=== PATIENT | female | born 1960 | race Caucasian/White ===

== ENCOUNTER 2017-02-04 11:27 | Emergency (ER) | payer MEDICARE, OTHER ==
[~2017-02-04] VITALS: Ht 157.5 cm; Wt 64.0 kg
[~2017-02-04 11:27] MED LIST: HALO10 PO; LITH600 PO; QUET200T PO; SERT100T PO
[2017-02-04] MEDS ORDERED: ASPIRIN 81 MG CHEWABLE TABLET PO ONE (12:00)
[2017-02-04] MEDS ORDERED: NITROGLYCERIN 2% (1 GM=INCH) PACKET TP ONE (12:00)
[2017-02-04] MEDS ORDERED: NITROGLYCERIN 0.4 MG SUBLINGUAL TABLET #25 SL ONE (12:00)
[2017-02-04 12:13] LABS: BASOPHILS % (AUTO) 0.5 % (0.0-2.0); EOSINOPHILS % (AUTO) 0.8 % (1.0-6.0); HEMATOCRIT 39.1 % (36-46); HEMOGLOBIN 12.9 g/dL (12.0-16.0); LYMPHOCYTES % (AUTO) 25.3 % (22.0-44.0); MEAN CORPUSCULAR HEMOGLOBIN 27.7 pg (26.0-34.0); MEAN CORPUSCULAR HGB CONC 32.9 G/dL (31.0-37.0); MEAN CORPUSCULAR VOLUME 84 fL (80-100); MONOCYTES # (AUTO) 0.5 K/uL (0.1-1.0); MONOCYTES % (AUTO) 6.8 % (2.0-9.0); NEUTROPHILS # (AUTO) 5.3 K/uL (1.8-7.7); NEUTROPHILS % (AUTO) 66.6 % (40.0-70.0); PLATELET COUNT (AUTO) 393 K/uL (150-450); RED BLOOD CELL COUNT(AUTO) 4.63 MIL/uL (4.00-5.20); RED CELL DISTRIBUTION WIDTH 17.8 % (11.5-14.5); WHITE BLOOD COUNT (AUTO) 7.9 K/uL (4.5-11.0)
[2017-02-04 12:22] LABS: INR 1.1 (0.9-1.1); PROTHROMBIN TIME 11.7 SEC (9.4-11.6)
[2017-02-04 12:25] LABS: ANION GAP 12 mmol/L (8-16); CALCIUM, TOTAL 9.4 mg/dL (8.8-10.5); CARBON DIOXIDE 22 mmol/L (22-29); CHLORIDE 98 mmol/L (98-107); CREATININE 0.78 mg/dL (0.60-1.30); GLOMERULAR FILTR. RATE CALC > 60 mL/min (>60); POTASSIUM 4.3 mmol/L (3.5-5.1); SODIUM SERUM 132 mmol/L (136-145); UREA NITROGEN, BLOOD 6 mg/dL (7-18)
[2017-02-04 12:27] LABS: LITHIUM 0.21 mmol/L (0.60-1.20)
[2017-02-04 12:40] LABS: B-TYPE NATRIURETIC PEPTIDE 15 pg/mL (0-100)
[2017-02-04 12:52] LABS: ALANINE AMINOTRANSFERASE 16 U/L (12-78); ALBUMIN 4.2 g/dL (3.4-5.0); ASPARTATE AMINOTRANSFERASE 14 U/L (15-37); BILIRUBIN,TOTAL 0.4 mg/dL (0.1-1.0); CREATINE KINASE MB 0.9 ng/mL (0-5); CREATINE KINASE, TOTAL 90 U/L (26-192); TOTAL PROTEIN, SERUM 7.9 g/dL (6.4-8.2)
[2017-02-04 13:53] LABS: APPEARANCE,URINE CLEAR (CLEAR); GLUCOSE, URINE (UA) NEGATIVE (NEGATIVE); KETONES,URINE NEGATIVE (NEGATIVE); LEUKOCYTE ESTERASE ,URINE NEGATIVE (NEGATIVE); OCCULT BLOOD,URINE NEGATIVE (NEGATIVE); PROTEIN,URINE NEGATIVE (NEGATIVE)
[2017-02-04 13:57] LABS: ADD UA MICROSCOPIC NO
[2017-02-04 14:15] VITALS: BP 118/78
== END 2017-02-04 15:10 | disposition left against medical advice (07) ==
LOC: EMS 11:31
DX: J44.9 Chronic obstructive pulmonary disease, unspecified (principal); I50.9 Heart failure, unspecified; E03.9 Hypothyroidism, unspecified; F17.210 Nicotine dependence, cigarettes, uncomplicated; Z79.82 Long term (current) use of aspirin
CPT/HCPCS: 93005; 99285; 99406

== ENCOUNTER → 2017-07-07 | Outpatient (CLI) | payer MEDICARE, MEDICAID ==
[~2017-07-07] MED LIST changes: -HALO10 PO
== END | disposition home or self-care (01) ==
LOC: RADMN 08:12
PROVIDERS: ATTEND Internal Medicine Cardiovascular Disease
DX: I50.20 Unspecified systolic (congestive) heart failure (principal); I42.5 Other restrictive cardiomyopathy
CPT/HCPCS: 78472; Q3010

== ENCOUNTER → 2017-12-30 | Outpatient (CLI) | payer MEDICARE, OTHER | END | disposition home or self-care (01) | LOC: LABMN 11:30 | PROVIDERS: ATTEND Psychiatry & Neurology Psychiatry | DX: F25.9 Schizoaffective disorder, unspecified (principal) ==

== ENCOUNTER → 2018-03-01 | Outpatient (CLI) | payer MEDICARE, OTHER | END | disposition home or self-care (01) | LOC: LABMN 10:45 | PROVIDERS: ATTEND Psychiatry & Neurology Psychiatry | DX: F25.9 Schizoaffective disorder, unspecified (principal); F41.9 Anxiety disorder, unspecified; K21.9 Gastro-esophageal reflux disease without esophagitis; J44.9 Chronic obstructive pulmonary disease, unspecified; E03.9 Hypothyroidism, unspecified; F32.9 Major depressive disorder, single episode, unspecified ==

== ENCOUNTER → 2018-07-28 | Outpatient (CLI) | payer MEDICARE, OTHER | END | disposition home or self-care (01) | LOC: LABMN 12:00 | PROVIDERS: ATTEND Internal Medicine | DX: B15.9 Hepatitis A without hepatic coma (principal) | CPT/HCPCS: 80074; 86704; 86706; 86708 ==

== ENCOUNTER → 2018-08-25 | Outpatient (CLI) | payer MEDICARE, OTHER ==
[2018-08-26 11:27] LABS: CHOL/HDL RATIO 3.4 (3.9-5.7); HEMOGLOBIN A1C 5.9 % (4.5-6.2)
== END | disposition home or self-care (01) ==
LOC: LABPV 13:00
PROVIDERS: ATTEND Psychiatry & Neurology Psychiatry
DX: F25.9 Schizoaffective disorder, unspecified (principal); E03.9 Hypothyroidism, unspecified; J44.9 Chronic obstructive pulmonary disease, unspecified; K21.9 Gastro-esophageal reflux disease without esophagitis; F17.210 Nicotine dependence, cigarettes, uncomplicated; Z79.899 Other long term (current) drug therapy
CPT/HCPCS: 82947; 83036

== ENCOUNTER → 2018-11-25 | Outpatient (CLI) | payer MEDICARE, OTHER | END | disposition home or self-care (01) | LOC: LABMN 14:43 | PROVIDERS: ATTEND Psychiatry & Neurology Psychiatry | DX: F25.0 Schizoaffective disorder, bipolar type (principal) | CPT/HCPCS: 80173 ==

== ENCOUNTER 2018-12-01 11:48 | Inpatient (IN) | payer MEDICARE, MEDICAID ==
[~2018-12-01] VITALS: Ht 157.5 cm; Wt 67.3 kg
[2018-12-01 12:37] VITALS: BP 129/78
[2018-12-01] MEDS ORDERED: LOPERAMIDE HCL 2 MG CAPSULE PO PRN ×2 (13:00→15:00)
[2018-12-01] MEDS ORDERED: ZOLPIDEM TARTRATE 10 MG TABLET PO PRN (13:00)
[2018-12-01] MEDS ORDERED: ACETAMINOPHEN 325 MG TABLET PO PRN ×2 (13:00→15:00)
[2018-12-01] MEDS ORDERED: PROMETHAZINE HCL 25 MG TABLET PO PRN (13:00)
[2018-12-01] MEDS ORDERED: MAG HYDROX/AL HYDROX/SIMETH ES 30 ML SUSPENSION UDCUP PO PRN ×2 (13:00→15:00)
[2018-12-01] MEDS ORDERED: MAGNESIUM HYDROXIDE SUSPENSION 30 ML UDCUP PO PRN ×2 (13:00→15:00)
[2018-12-01] MEDS ORDERED: TUBERCULIN, PURIFIED PROTEIN DERIVATIVE 5 TU/0.1 ML SYRINGE ID ONE (13:00)
[2018-12-01] MEDS ORDERED: GuaiFENesin/D-METHORPHAN [SUGAR-FREE] 200-20MG/10 ML SYRUP UDCUP PO PRN (13:00)
[2018-12-01] MEDS ORDERED: LORazepam 2 MG TABLET PO PRN (13:00)
[2018-12-01] MEDS ORDERED: HALOPERIDOL 5 MG TABLET PO PRN (13:00)
[2018-12-01] MEDS ORDERED: HydrOXYzine PAMOATE 50 MG CAPSULE PO PRN (13:00)
[2018-12-01 15:00] VITALS: BP 122/81
[2018-12-01] MEDS ORDERED: IBUPROFEN 600 MG TABLET PO PRN (15:00)
[2018-12-01] MEDS ORDERED: ONDANSETRON HCL 4 MG TABLET PO PRN (15:00)
[2018-12-01] MEDS ORDERED: BENZOCAINE/MENTHOL LOZENGE MM PRN (15:00)
[2018-12-01] MEDS ORDERED: ALBUTEROL SULFATE HFA 90 MCG/PUFF 8 GM INHALER IH PRN (15:00)
[2018-12-01] MEDS ORDERED: PETROLATUM,WHITE 28 GM JELLY TP PRN (15:00)
[2018-12-01] MEDS ORDERED: BACITRACIN 28.4 GM OINTMENT TP PRN (15:00)
[2018-12-01] MEDS ORDERED: CloNIDine HCL 0.1 MG TABLET PO PRN (15:00)
[2018-12-01 16:47] VITALS: BP 108/70
[2018-12-01] MEDS: NICOTINE 21 MG/24 HOUR PATCH TD SCH (17:42)
[2018-12-01] MEDS: THIAMINE HCL 100 MG TABLET PO SCH (17:43)
[2018-12-01] MEDS ORDERED: HALOPERIDOL 10 MG TABLET PO SCH (21:00)
[2018-12-02 06:31] VITALS: BP 150/78
[2018-12-02 08:00] VITALS: BP 158/75
[2018-12-02 08:38] LABS: BASOPHILS % (AUTO) 1.2 % (0.0-2.0); EOSINOPHILS % (AUTO) 3.3 % (1.0-6.0); HEMATOCRIT 46.1 % (36-46); HEMOGLOBIN 15.1 g/dL (12.0-16.0); LYMPHOCYTES # (AUTO) 2.4 K/uL (1.0-4.8); LYMPHOCYTES % (AUTO) 31.1 % (22.0-44.0); MEAN CORPUSCULAR HEMOGLOBIN 29.2 pg (26.0-34.0); MEAN CORPUSCULAR HGB CONC 32.7 G/dL (31.0-37.0); MEAN CORPUSCULAR VOLUME 89 fL (80-100); MONOCYTES # (AUTO) 0.6 K/uL (0.1-1.0); MONOCYTES % (AUTO) 7.2 % (2.0-9.0); NEUTROPHILS # (AUTO) 4.5 K/uL (1.8-7.7); NEUTROPHILS % (AUTO) 57.2 % (40.0-70.0); PLATELET COUNT (AUTO) 296 K/uL (150-450); RED BLOOD CELL COUNT(AUTO) 5.17 MIL/uL (4.00-5.20); RED CELL DISTRIBUTION WIDTH 18.5 % (11.5-14.5)
[2018-12-02] MEDS: OMEPRAZOLE 20 MG CAPSULE PO SCH (08:44)
[2018-12-02] MEDS: NICOTINE 21 MG/24 HOUR PATCH TD SCH (08:44)
[2018-12-02] MEDS: THIAMINE HCL 100 MG TABLET PO SCH ×2 (08:44→17:37)
[2018-12-02] MEDS: DOCUSATE SODIUM 100 MG CAPSULE PO SCH (08:44)
[2018-12-02] MEDS: MULTIVITAMINS WITH MINERALS, THERAPEUTIC TABLET PO SCH (08:44)
[2018-12-02] MEDS: FOLIC ACID 1 MG TABLET PO SCH (08:44)
[2018-12-02 08:54] LABS: HEMOGLOBIN A1C 5.9 % (4.5-6.2)
[2018-12-02] MEDS ORDERED: DULoxetine HCL 20 MG CAPSULE PO SCH (09:00)
[2018-12-02 09:02] LABS: ALANINE AMINOTRANSFERASE 13 U/L (12-78); ALBUMIN 3.6 g/dL (3.4-5.0); ALKALINE PHOSPHATASE 108 U/L (46-116); ANION GAP 11 mmol/L (8-16); ASPARTATE AMINOTRANSFERASE 16 U/L (15-37); BILIRUBIN,TOTAL 0.3 mg/dL (0.1-1.0); CALCIUM, TOTAL 9.4 mg/dL (8.8-10.5); CARBON DIOXIDE 26 mmol/L (22-29); CHLORIDE 104 mmol/L (98-107); CHOL/HDL RATIO 5.3 (3.9-5.7); CHOLESTEROL 197 mg/dL (131-200); CREATININE 0.79 mg/dL (0.60-1.30); GLOMERULAR FILTR. RATE CALC > 60 mL/min (>60); GLUCOSE,RANDOM 92 mg/dL (70-110); HDL CHOLESTEROL 37 mg/dL (40-60); LDL CHOL (CALC.) 140 mg/dL (0-130); POTASSIUM 4.1 mmol/L (3.5-5.1); SODIUM SERUM 141 mmol/L (136-145); THYROID STIMULATING HORMONE 1.34 uIU/mL (0.36-3.74); TOTAL PROTEIN, SERUM 7.3 g/dL (6.4-8.2); TRIGLYCERIDES 102 mg/dL (15-150); UREA NITROGEN, BLOOD 12 mg/dL (7-18)
[2018-12-02 12:45] VITALS: BP 141/88
[2018-12-02] MEDS ORDERED: DENTURE ADHESIVE 68 GM CREAM DT PRN (14:30)
[2018-12-02] MEDS ORDERED: SERT100T12 PO (15:08)
[2018-12-02] MEDS ORDERED: QUET200T29 PO (15:08)
[2018-12-02] MEDS ORDERED: NALT50TA PO (15:08)
[2018-12-02] MEDS ORDERED: BUPR-47 PO (15:08)
[2018-12-02] MEDS ORDERED: QUEtiapine FUMARATE 100 MG TABLET PO PRN (15:15)
[2018-12-02 16:23] VITALS: BP 122/69
[2018-12-02] MEDS ORDERED: QUEtiapine FUMARATE 200 MG TABLET PO SCH (21:00)
[2018-12-03 01:07] VITALS: BP 113/71
[2018-12-03] MEDS: NICOTINE 21 MG/24 HOUR PATCH TD SCH (08:37)
[2018-12-03] MEDS: FOLIC ACID 1 MG TABLET PO SCH (08:37)
[2018-12-03] MEDS: THIAMINE HCL 100 MG TABLET PO SCH (08:37)
[2018-12-03] MEDS: OMEPRAZOLE 20 MG CAPSULE PO SCH (08:37)
[2018-12-03] MEDS: MULTIVITAMINS WITH MINERALS, THERAPEUTIC TABLET PO SCH (08:37)
[2018-12-03] MEDS: DOCUSATE SODIUM 100 MG CAPSULE PO SCH (08:39)
[2018-12-03] MEDS ORDERED: BuPROPion HCL XL 150 MG ER TABLET PO SCH (09:00)
[2018-12-03] MEDS ORDERED: SERTRALINE HCL 100 MG TABLET PO SCH (09:00)
[2018-12-03 09:08] VITALS: BP 121/65
[2018-12-03] MEDS ORDERED: BUPR-93 PO (09:25)
[2018-12-03] MEDS ORDERED: OMEP20 PO (09:25)
[2018-12-03] MEDS ORDERED: NALT50TA6 PO (09:25)
[2018-12-03] MEDS ORDERED: QUET200T PO (09:25)
[2018-12-03] MEDS ORDERED: SERT100T12 PO (09:25)
== END 2018-12-03 10:00 | disposition home or self-care (01) | DRG 885 ==
LOC: B2S 12:58
PROVIDERS: ADMIT Psychiatry & Neurology Psychiatry; ATTEND Psychiatry & Neurology Psychiatry
DX: F25.9 Schizoaffective disorder, unspecified (principal); R45.851 Suicidal ideations; E03.9 Hypothyroidism, unspecified; F17.200 Nicotine dependence, unspecified, uncomplicated; G47.00 Insomnia, unspecified; K59.00 Constipation, unspecified; F60.0 Paranoid personality disorder; F41.9 Anxiety disorder, unspecified; Z91.19 Patient's noncompliance with other medical treatment and regimen
CPT/HCPCS: 83036; 84439; 84443; 86592; 87081

== ENCOUNTER → 2020-11-07 | Outpatient (CLI) | payer MEDICARE, OTHER ==
[~2020-11-07] MED LIST changes: +BUPR-49 PO; +BUPR-93 PO; -LITH600 PO; +NALT50TA PO; +NALT50TA6 PO; +OMEP20 PO; +QUET200T29 PO; +SERT-162 PO; +SERT-440 PO; -SERT100T PO
== END | disposition home or self-care (01) ==
LOC: LABMN 10:56
PROVIDERS: ATTEND Psychiatry & Neurology Psychiatry
DX: F25.1 Schizoaffective disorder, depressive type (principal)
CPT/HCPCS: 80173

== ENCOUNTER 2023-03-25 10:44 | Inpatient (IN) | payer MEDICARE, OTHER ==
[~2023-03-25] VITALS: Ht 152.4 cm; Wt 78.0 kg
[~2023-03-25 10:44] MED LIST changes: +BUPR-50 PO; -BUPR-93 PO; -QUET200T29 PO; +QUET200T30 PO
[2023-03-25 12:14] LABS: BASOPHILS % (AUTO) 1.1 % (0.0-2.0); EOSINOPHILS % (AUTO) 3.2 % (1.0-6.0); HEMATOCRIT 37.8 % (36-46); HEMOGLOBIN 12.1 g/dL (12.0-16.0); LYMPHOCYTES # (AUTO) 1.5 K/uL (1.0-4.8); MEAN CORPUSCULAR HEMOGLOBIN 27.4 pg (26.0-34.0); MEAN CORPUSCULAR HGB CONC 32.1 G/dL (31.0-37.0); MEAN CORPUSCULAR VOLUME 85 fL (80-100); MONOCYTES # (AUTO) 0.6 K/uL (0.1-1.0); MONOCYTES % (AUTO) 8.5 % (2.0-9.0); NEUTROPHILS # (AUTO) 4.9 K/uL (1.8-7.7); NEUTROPHILS % (AUTO) 67.2 % (40.0-70.0); PLATELET COUNT (AUTO) 299 K/uL (150-450); RED BLOOD CELL COUNT(AUTO) 4.42 MIL/uL (4.00-5.20); RED CELL DISTRIBUTION WIDTH 15.3 % (11.5-14.5)
[2023-03-25] MEDS ORDERED: ACETAMINOPHEN 325 MG TABLET PO PRN (12:15)
[2023-03-25] MEDS ORDERED: MAGNESIUM HYDROXIDE SUSPENSION 30 ML UDCUP PO PRN (12:15)
[2023-03-25] MEDS: ASPIRIN 81 MG CHEWABLE TABLET PO SCH (12:23)
[2023-03-25] MEDS ORDERED: NICOTINE 21 MG/24 HOUR PATCH TD ONE (12:30)
[2023-03-25 12:39] LABS: ANION GAP 11 mmol/L (8-16); CALCIUM, TOTAL 9.1 mg/dL (8.8-10.5); CARBON DIOXIDE 26 mmol/L (22-29); CHLORIDE 105 mmol/L (98-107); CREATININE 0.76 mg/dL (0.60-1.30); GLOMERULAR FILTR. RATE CALC > 60 mL/min (>60); GLUCOSE,RANDOM 132 mg/dL (70-110); POTASSIUM 3.9 mmol/L (3.5-5.1); SODIUM SERUM 142 mmol/L (136-145)
[2023-03-25 12:45] LABS: ALANINE AMINOTRANSFERASE 19 U/L (12-78); ALBUMIN 3.3 g/dL (3.4-5.0); ALKALINE PHOSPHATASE 131 U/L (46-116); ASPARTATE AMINOTRANSFERASE 17 U/L (15-37); BILIRUBIN,TOTAL 0.3 mg/dL (0.1-1.0); LIPASE 29 U/L (16-77); TOTAL PROTEIN, SERUM 6.8 g/dL (6.4-8.2)
[2023-03-25 12:50] LABS: D-DIMER 0.29 mg/L FEU (0.00-0.50); PROTHROMBIN TIME 10.9 SEC (9.4-11.6)
[2023-03-25 13:38] LABS: COVID AG,FIA SOURCE NASOPHARYNGEAL
[2023-03-25 14:40] LABS: APPEARANCE,URINE CLEAR (CLEAR); BILIRUBIN,URINE NEGATIVE (NEGATIVE); GLUCOSE, URINE (UA) NEGATIVE (NEGATIVE); KETONES,URINE NEGATIVE (NEGATIVE); LEUKOCYTE ESTERASE ,URINE NEGATIVE (NEGATIVE); NITRATE,URINE NEGATIVE (NEGATIVE); OCCULT BLOOD,URINE NEGATIVE (NEGATIVE); PH,URINE 6.5 (5.0-8.0); PROTEIN,URINE NEGATIVE (NEGATIVE); UROBILINOGEN,URINE <=1.0 mg/dL (<=1.0)
[2023-03-25] MEDS: HEPARIN SODIUM,PORCINE 5,000 UNITS/ML VIAL SQ SCH (15:05)
[2023-03-25 18:32] VITALS: BP 132/72; PULSE 73; RESP 18; TEMP 98
[2023-03-25] MEDS: NICOTINE 21 MG/24 HOUR PATCH TD SCH (19:15)
[2023-03-25 19:59] VITALS: BP 118/70; PULSE 68; RESP 18; TEMP 97.9
[2023-03-25] MEDS ORDERED: QUEtiapine FUMARATE 100 MG TABLET PO SCH (21:00)
[2023-03-26 00:32] VITALS: BP 120/69; PULSE 70; RESP 18; TEMP 97.8
[2023-03-26] MEDS: HEPARIN SODIUM,PORCINE 5,000 UNITS/ML VIAL SQ SCH ×2 (01:49→10:14)
[2023-03-26 04:17] VITALS: BP 130/71; PULSE 76; RESP 18; TEMP 97.7
[2023-03-26 07:49] VITALS: BP 112/67; PULSE 77; RESP 18; TEMP 98
[2023-03-26] MEDS: ASPIRIN 81 MG CHEWABLE TABLET PO SCH (08:17)
[2023-03-26] MEDS: NICOTINE 21 MG/24 HOUR PATCH TD SCH (08:17)
[2023-03-26] MEDS ORDERED: NICOTINE 21 MG/24 HOUR PATCH TD SCH (09:00)
[2023-03-26] MEDS ORDERED: BuPROPion HCL XL 150 MG ER TABLET PO SCH (09:00)
[2023-03-26] MEDS ORDERED: FAMOTIDINE 20 MG TABLET PO SCH (09:00)
[2023-03-26 11:15] VITALS: BP 125/74; PULSE 78; RESP 17; TEMP 98.4
[2023-03-26 15:53] VITALS: BP 120/70; PULSE 82; RESP 18; TEMP 98
== END 2023-03-26 18:00 | disposition home or self-care (01) | DRG 313 ==
LOC: EMS 10:44 → 5S 16:19
PROVIDERS: ADMIT Internal Medicine; ATTEND Internal Medicine
DX: R07.89 Other chest pain (principal); F25.9 Schizoaffective disorder, unspecified; Z20.822 Contact with and (suspected) exposure to COVID-19; F17.210 Nicotine dependence, cigarettes, uncomplicated; F31.9 Bipolar disorder, unspecified; E66.9 Obesity, unspecified; E03.9 Hypothyroidism, unspecified; Z68.33 Body mass index [BMI] 33.0-33.9, adult; Z79.899 Other long term (current) drug therapy; Z98.51 Tubal ligation status; Z71.6 Tobacco abuse counseling
CPT/HCPCS: 71045; 80053; 81003; 83690; 84484; 85025; 85379; 85610; 85730; 93005; 93306; 99285; J1644; 36415-L1; 36415-TC

== ENCOUNTER 2023-09-30 10:24 | Emergency (ER) | payer MEDICARE, OTHER ==
[~2023-09-30] VITALS: Ht 152.4 cm; Wt 72.7 kg
[~2023-09-30 10:24] MED LIST changes: -BUPR-49 PO; -NALT50TA PO; +NALT50TA33 PO; -NALT50TA6 PO; -QUET200T PO; -SERT-162 PO
[2023-09-30 10:38] VITALS: TEMP 98.2
[2023-09-30] MEDS: MethylPREDNISolone SOD SUCC 125 MG/2 ML VIAL IVP ONE (10:45)
[2023-09-30] MEDS: ALBUTEROL SULFATE 2.5 MG/0.5 ML NEB SOLUTION NEB ONE (10:46)
[2023-09-30] MEDS: IPRATROPIUM BROMIDE 0.5 MG/2.5 ML NEB SOLUTION NEB ONE (10:46)
[2023-09-30 10:49] VITALS: PULSE 85; RESP 22; O2SAT 94
[2023-09-30 10:50] VITALS: PULSE 85; RESP 22; O2SAT 94
[2023-09-30 11:02] LABS: COVID AG,FIA SOURCE NASAL SWAB
[2023-09-30] MEDS ORDERED: ROSU10TA72 PO (11:06)
[2023-09-30] MEDS ORDERED: DICL100G60 TP (11:06)
[2023-09-30] MEDS ORDERED: ASPI81TA87 PO (11:06)
[2023-09-30] MEDS ORDERED: DOCU-385 PO (11:06)
[2023-09-30] MEDS ORDERED: CARV3 PO (11:06)
[2023-09-30] MEDS ORDERED: LOSA-382 PO (11:06)
[2023-09-30] MEDS ORDERED: LEVO50 PO (11:06)
[2023-09-30] MEDS ORDERED: DILT30TA4 PO (11:06)
[2023-09-30 11:15] LABS: BASOPHILS % (AUTO) 1.1 % (0.0-2.0); EOSINOPHILS % (AUTO) 1.9 % (1.0-6.0); HEMATOCRIT 37.5 % (36-46); HEMOGLOBIN 12.3 g/dL (12.0-16.0); LYMPHOCYTES # (AUTO) 1.9 K/uL (1.0-4.8); LYMPHOCYTES % (AUTO) 16.9 % (22.0-44.0); MEAN CORPUSCULAR HEMOGLOBIN 29.3 pg (26.0-34.0); MEAN CORPUSCULAR HGB CONC 32.8 G/dL (31.0-37.0); MEAN CORPUSCULAR VOLUME 89 fL (80-100); MONOCYTES # (AUTO) 0.7 K/uL (0.1-1.0); NEUTROPHILS # (AUTO) 8.4 K/uL (1.8-7.7); NEUTROPHILS % (AUTO) 74.1 % (40.0-70.0); PLATELET COUNT (AUTO) 364 K/uL (150-450); RED CELL DISTRIBUTION WIDTH 15.5 % (11.5-14.5); WHITE BLOOD COUNT (AUTO) 11.4 K/uL (4.5-11.0)
[2023-09-30] MEDS ORDERED: HALO5VIA16 IM (11:25)
[2023-09-30] MEDS ORDERED: CLOP75TA60 PO (11:25)
[2023-09-30] MEDS ORDERED: FLUO-341 PO (11:25)
[2023-09-30] MEDS ORDERED: MIRT-149 PO (11:25)
[2023-09-30] MEDS ORDERED: QUET400T13 PO (11:25)
[2023-09-30] MEDS ORDERED: QUET200T30 PO (11:25)
[2023-09-30] MEDS ORDERED: NITR0.4T52 SL (11:25)
[2023-09-30] MEDS ORDERED: ALBU18HF12 IH (11:25)
[2023-09-30 11:29] LABS: CALCIUM, TOTAL 9.6 mg/dL (8.8-10.5); CREATININE 0.96 mg/dL (0.60-1.30); POTASSIUM 3.6 mmol/L (3.5-5.1)
[2023-09-30 11:39] LABS: SARS-COV2 (COVID) ANTIGEN,FIA Negative (Negative)
[2023-09-30 11:39] LABS: TROPONIN I-HIGH SENSITIVITY 7 ng/L (<51)
[2023-09-30 11:40] LABS: INFLUENZA TYPE A NEGATIVE FOR TYPE A (NEGATIVE); INFLUENZA TYPE B NEGATIVE FOR TYPE B (NEGATIVE)
[2023-09-30 11:55] LABS: ALBUMIN 3.7 g/dL (3.4-5.0); BILIRUBIN,TOTAL 0.5 mg/dL (0.1-1.0)
[2023-09-30 12:48] VITALS: BP 135/79; PULSE 88; RESP 19
[2023-09-30] MEDS ORDERED: PRED-554 PO (12:57)
== END 2023-09-30 13:29 | disposition home or self-care (01) ==
LOC: EMS 10:24
DX: J44.1 Chronic obstructive pulmonary disease with (acute) exacerbation (principal); F31.9 Bipolar disorder, unspecified; E03.9 Hypothyroidism, unspecified; F20.9 Schizophrenia, unspecified; F17.210 Nicotine dependence, cigarettes, uncomplicated; Z98.51 Tubal ligation status; Z20.822 Contact with and (suspected) exposure to COVID-19
CPT/HCPCS: 99285; 96374; 71045; 87426; 80053; 82550; 83880; 84484; 85025; 87804; 36415; 94640; 93005; J2930; J7613

== ENCOUNTER 2023-11-30 10:21 | Emergency (ER) | payer MEDICARE, OTHER ==
[~2023-11-30] VITALS: Ht 152.4 cm; Wt 74.5 kg
[~2023-11-30 10:21] MED LIST changes: +ALBU18HF12 IH; +ASPI81TA87 PO; +CARV3 PO; +CLOP75TA60 PO; +DICL100G60 TP; +DILT30TA4 PO; +DOCU-385 PO; +FLUO-341 PO; +HALO5VIA16 IM; +LEVO50 PO; +LOSA-382 PO; +MIRT-149 PO; -NALT50TA33 PO; +NITR0.4T52 SL; +PRED-554 PO; +QUET400T13 PO; +ROSU10TA72 PO; -SERT-440 PO
[2023-11-30 10:23] VITALS: BP 131/72; PULSE 104; RESP 18; TEMP 98.4
[2023-11-30] MEDS ORDERED: CILO100T3 PO (10:33)
[2023-11-30] MEDS ORDERED: GABA-1181 PO (10:33)
[2023-11-30] MEDS ORDERED: ISOS30TA92 PO (10:33)
[2023-11-30] MEDS ORDERED: LEVO88TA4 PO (10:33)
[2023-11-30 11:23] LABS: BASOPHILS % (AUTO) 0.8 % (0.0-2.0); EOSINOPHILS % (AUTO) 0.5 % (1.0-6.0); HEMATOCRIT 38.1 % (36-46); HEMOGLOBIN 12.3 g/dL (12.0-16.0); LYMPHOCYTES # (AUTO) 1.7 K/uL (1.0-4.8); LYMPHOCYTES % (AUTO) 13.9 % (22.0-44.0); MEAN CORPUSCULAR HEMOGLOBIN 27.4 pg (26.0-34.0); MEAN CORPUSCULAR HGB CONC 32.3 G/dL (31.0-37.0); MEAN CORPUSCULAR VOLUME 85 fL (80-100); MONOCYTES # (AUTO) 0.7 K/uL (0.1-1.0); MONOCYTES % (AUTO) 5.4 % (2.0-9.0); NEUTROPHILS # (AUTO) 9.5 K/uL (1.8-7.7); NEUTROPHILS % (AUTO) 79.4 % (40.0-70.0); PLATELET COUNT (AUTO) 454 K/uL (150-450); RED BLOOD CELL COUNT(AUTO) 4.49 MIL/uL (4.00-5.20); RED CELL DISTRIBUTION WIDTH 15.2 % (11.5-14.5)
[2023-11-30 11:34] LABS: ANION GAP 13 mmol/L (8-16); CALCIUM, TOTAL 9.2 mg/dL (8.8-10.5); CARBON DIOXIDE 22 mmol/L (22-29); CHLORIDE 104 mmol/L (98-107); CREATININE 0.81 mg/dL (0.60-1.30); GLOMERULAR FILTR. RATE CALC > 60 mL/min (>60); GLUCOSE,RANDOM 132 mg/dL (70-110); POTASSIUM 3.9 mmol/L (3.5-5.1); SODIUM SERUM 139 mmol/L (136-145); UREA NITROGEN, BLOOD 10 mg/dL (7-18)
[2023-11-30 11:36] LABS: ALANINE AMINOTRANSFERASE 25 U/L (12-78); ALBUMIN 3.6 g/dL (3.4-5.0); ALKALINE PHOSPHATASE 181 U/L (46-116); ASPARTATE AMINOTRANSFERASE 20 U/L (15-37); BILIRUBIN,TOTAL 0.3 mg/dL (0.1-1.0); TOTAL PROTEIN, SERUM 8.2 g/dL (6.4-8.2)
[2023-11-30 11:37] LABS: INR 1.1 (0.9-1.1); PROTHROMBIN TIME 11.1 SEC (9.4-11.6)
== END 2023-11-30 14:09 | disposition home or self-care (01) ==
LOC: EMS 10:21
DX: S70.02XA Contusion of left hip, initial encounter (principal); F20.9 Schizophrenia, unspecified; F31.9 Bipolar disorder, unspecified; J44.9 Chronic obstructive pulmonary disease, unspecified; F17.210 Nicotine dependence, cigarettes, uncomplicated; Z98.51 Tubal ligation status; W19.XXXA Unspecified fall, initial encounter; Y93.89 Activity, other specified; Y92.89 Other specified places as the place of occurrence of the external cause; Y99.8 Other external cause status
CPT/HCPCS: 70450; 80053; 85025; 85610; 85730; 99284

== ENCOUNTER → 2023-12-17 | Outpatient (CLI) | payer MEDICARE, OTHER ==
[~2023-12-17] MED LIST changes: -ALBU18HF12 IH; +CILO100T3 PO; -DICL100G60 TP; +GABA-1181 PO; +ISOS30TA92 PO; -LEVO50 PO; +LEVO88TA4 PO; -NITR0.4T52 SL; -PRED-554 PO
[2023-12-17 14:51] LABS: HEMOGLOBIN A1C 5.6 % (3.8-5.6)
[2023-12-17 16:12] LABS: CHOL/HDL RATIO 2.3 (3.9-5.7)
== END | disposition home or self-care (01) ==
LOC: LABMN 14:07
PROVIDERS: ATTEND Psychiatry & Neurology Psychiatry
DX: F25.9 Schizoaffective disorder, unspecified (principal); Z79.899 Other long term (current) drug therapy
CPT/HCPCS: 80061; 82947; 83036

== ENCOUNTER 2024-06-13 10:50 | Emergency (ER) | payer MEDICARE, OTHER ==
[~2024-06-13] VITALS: Ht 154.9 cm; Wt 61.4 kg
[~2024-06-13 10:50] MED LIST changes: -BUPR-50 PO; +BUPR-514 PO
[2024-06-13 10:58] VITALS: TEMP 98
[2024-06-13] MEDS ORDERED: [UNRECOGNIZED DRUG - REMARK] MISC (11:01)
[2024-06-13] MEDS: AMOX TR/POT CLAV 875 MG/125 MG TABLET PO ONE (11:18)
[2024-06-13] MEDS: PERTUSS(ACELL),DIPH,TET/PF 0.5 ML SYRINGE [ADULT] IM. ONE (11:20)
[2024-06-13] MEDS ORDERED: AMOX-457 PO (11:50)
[2024-06-13 12:30] VITALS: BP 138/74; PULSE 78; RESP 18; O2SAT 99
== END 2024-06-13 12:31 | disposition home or self-care (01) ==
LOC: EMS 10:50 → EDUNIT# 10:50 → EMS 12:31
DX: S61.451A Open bite of right hand, initial encounter (principal); M19.90 Unspecified osteoarthritis, unspecified site; F31.9 Bipolar disorder, unspecified; J44.9 Chronic obstructive pulmonary disease, unspecified; F20.0 Paranoid schizophrenia; E03.9 Hypothyroidism, unspecified; F17.210 Nicotine dependence, cigarettes, uncomplicated; Z98.51 Tubal ligation status; Z79.02 Long term (current) use of antithrombotics/antiplatelets; W54.0XXA Bitten by dog, initial encounter; Y93.89 Activity, other specified; Y92.89 Other specified places as the place of occurrence of the external cause; Y99.8 Other external cause status
CPT/HCPCS: 90471; 90715; 99283